=== PATIENT | male | born 2005 | race Caucasian/White ===

== ENCOUNTER 2025-07-26 08:38 | Outpatient (AMB) | payer OTHER, SELFPAY ==
--- NOTE | 2025-07-26 08:39 | MHC.PC.OV ---
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: No Accompanied by: Self / Same As Patient Allergies No Known Allergies Allergy (Verified 07/26/25 08:43) Medication List - Last Reconciled 07/26/25 by Harpreet Hoffman MD No Known Home Meds Tobacco use date assessed: 07/26/25 Dental Screening Dental Screen Date: 07/26/25 Did you have a dental visit in the last 12 months?: Yes Did you have a dental problem in the last 6 months where you did not have access to dental care?: No Was dental information given to patient?: Patient has dentist HPI HPI Comments History of Present Illness Details History of Present Illness The patient is a 19 year old male presenting for his first primary care visit as an adult. He was previously followed by a pediatric provider but has not seen a doctor in a while. He reports feeling well overall and denies any current medical conditions. Based on a PHQ assessment, he meets the criteria for mild to moderate depression. 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 He denies any thoughts of self-harm and has declined medication or psychiatric referral, stating he has a good support system. Past surgical history is significant for a tonsillectomy as a child. His family history is positive for diabetes in his mother. He denies any use of tobacco, marijuana, vapes, cocaine, heroin, or alcohol. Medical History: - Mild to moderate depression, per PHQ screen - Needle phobia Surgical History: - Tonsillectomy as a child Family History: - Diabetes: Mother - Denies family history of heart disease or cancers. Diagnostic Results: - PHQ Assessment for Depression: meets criteria for mild to moderate depression. Social History - Substance Use: Denies use of tobacco, marijuana, vapes, cocaine, heroin, or alcohol. 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 - Sexual History: Patient is not currently sexually active. [facility] Medical History (Updated 07/26/25 @ 09:03 by Harpreet Hoffman MD) Anxiety and depression Annual physical exam Social History Housing: House Patient Tobacco Use Status: Never used Tobacco e-Cigarette/Vaping Use: Former Use service: No Current occupational status: employed Current occupation: [employer] seasonal Cognitive needs: No Hearing needs: No Vision needs: No Questionnaire PHQ-9 Over the last 2 weeks, how often have you been bothered by any of the following problems? 1. Little interest or pleasure in doing things: several days 2. Feeling down, depressed, or hopeless: not at all 3. Trouble falling or staying asleep, or sleeping too much: more than half the days 4. Feeling tired or having little energy: more than half the days 5. Poor appetite or overeating: more than half the days 6. Feeling bad about yourself - or that you are a failure or have let yourself or your family down: not at all 7. Trouble concentrating on things, such as reading the newspaper or watching television: more than half the days 8. Moving or speaking so slowly that other people could have noticed. Or the opposite - being so fidgety or restless that you have been moving around a lot more than usual: not at all 9. Thoughts that you would be better off or of hurting yourself in some way: not at all Total score: 9 Depression Screening Interpretation: Positive Depression Screening Done: Yes Source: Developed by Drs. Blas Warner, Shea Banks, Ronald Pierre and colleagues, with an educational hilary from [employer]. Thrive Questionnaire Date Thrive assessed: 07/26/25 I am a: Patient What is your living situation today?: I have a steady place to live Within the past 12 months, did the food you bought not last and you didn't have the money to get more?: Never true Within the past 12 months, did you worry whether your food would run out before you got money to buy more?: Never true Do you have trouble paying for medicines?: No Do you have trouble getting transportation to medical appointments?: No Do you have trouble paying your heating and electricity bill?: No Do you have trouble taking care of your child, family member or friend?: No Do you have trouble with day-to-day activities such as bathing, preparing meals, shopping, managing finances, etc.?: No Are you currently unemployed and looking for a job?: No Are you interested in more education?: No THRIVE Score: 0 AUDIT C Alcohol Use Questionnaire (AUDIT-C) 1. How often do you have a drink containing alcohol?: Never 3. How often do you have six or more drinks on one occasion?: Never Total Score: 0 Score Reviewed/Action Taken: Yes ALICE-7 AMB Questionnaire ALICE-7 Date ALICE - 7 assessed: 07/26/25 Feeling nervous, anxious, or on edge: 1 = Several days Not being able to stop or control worryin = Several days Worrying too much about different things: 1 = Several days Trouble relaxin = Several days Being so restless that it is hard to sit still: 0 = Not at all Becoming easily annoyed or irritable: 1 = Several days Feeling afraid as if something awful might happen: 0 = Not at all Total ALICE-7 score (0-4 normal; 5-9 mild; 10-14 moderate; 15-21 severe): 5 Source: Developed by Drs. Blas Warner, Shea Banks, Ronald Pierre and colleagues, with an educational hilary from [employer]. ALICE-7 Assessment Billing ALICE-7 Assessment Tool: ALICE-7 Assessment 45463 Review of Systems Narrative Review of Systems - General: Reports feeling well overall. - Psychiatric: Reports feeling stressed, being an up and down person, and having a lack of motivation. Denies thoughts of self-harm. - Genitourinary: Denies any difficulty with urination. - Gastrointestinal: Denies any difficulty with defecation. All systems reviewed & are unremarkable except as reviewed in HPI and above Physical exam (Primary Care) Vital Signs: Last Vital Signs Temp 98.7 F 07/26/25 08:45 Pulse 71 07/26/25 08:45 Resp 18 07/26/25 08:45 BP 132/76 07/26/25 08:45 Pulse Ox 98 07/26/25 08:45 Oxygen Delivery Method Room Air 07/26/25 08:45 BMI result Body Mass Index 23.5 Tobacco/Smoking Status: Tobacco use Status Tobacco use date assessed 07/26/25 07/26/25 08:41 Patient Tobacco Use Status Never used Tobacco 07/26/25 08:47 e-Cigarette/Vaping Use Former Use 07/26/25 08:47 PHQ-9: PHQ-9 Score PHQ-9: Total score 9 07/26/25 08:56 Depression Screening Interpretation: Positive Thrive Assessment: Date of Thrive Assessment Date Thrive assessed 07/26/25 07/26/25 08:41 Narrative Physical Exam General: +Alert and oriented, Well nourished, No acute distress. Eye: Pupils are equal, round and reactive to light, Intact accommodation, Extraocular movements are intact, Normal conjunctiva, Vision unchanged. HENT: Normocephalic, Atraumatic, Tympanic membranes are clear, Normal hearing, Oral mucosa is moist, No pharyngeal erythema, Ear canals patent. Respiratory: Lungs CTA bilaterally, No wheeze, Respirations are non-labored. Cardiovascular: Regular rate, Regular rhythm, S1 auscultated, S2 auscultated, No murmur, Good pulses equal in all extremities, Normal peripheral perfusion, No edema. Gastrointestinal: Soft, Non-tender, Non-distended, Normal bowel sounds, No organomegaly. Musculoskeletal: Normal range of motion, Normal strength, No tenderness, No swelling, No deformity, Normal gait. Integumentary: Warm, Dry, [place], Intact. Neurologic: Alert, Oriented, Normal sensory, Normal motor function, No focal defects, Cranial Nerves II-XII are grossly intact, Normal deep tendon reflexes. Psychiatric: Cooperative, Appropriate mood & affect, Normal judgment, Mild to moderate depression. Coding Level of Care Code New Pt Prev Care 18-39yr(03132 Diagnoses Anxiety and depression F41.9; F32.A Annual physical exam Z00.00 Additional Codes ALICE-7 Assessment Billing - ALICE-7 Assessment Tool: ALICE-7 Assessment 12031 ([id number]) Assessment & Plan Assessment & Plan (1) Anxiety and depression: Comment: - The patient screens positive for mild to moderate depression and acknowledges having up and down moods with a lack of motivation. - He denies suicidal ideation. - He has declined medication or a psychiatric referral, citing a strong support system. - Plan is to encourage him to remain active, especially during his work's off-season, to help manage his mood. Code(s): F41.9 - Anxiety disorder, unspecified; F32.A - Depression, unspecified Category: Medical (2) Annual physical exam: Comment: - This is the patient's first adult wellness visit. - Plan includes ordering baseline blood work to screen for HIV, syphilis, diabetes, and infections, as well as to check blood counts. - He will follow up in one year for his next annual physical or sooner if needed. Code(s): Z00.00 - Encounter for general adult medical examination without abnormal findings Category: Medical Plan: Health Maintenance - Annual physical examination established. - Baseline blood work ordered for screening, to include testing for HIV, syphilis, diabetes, infections, and a blood count. - Counseled on the importance of staying physically active to manage mood and for overall well-being. Patient was informed and verbally consented to the use of an ambient scribe for clinic note documentation during this visit. Vital signs reviewed. Comprehensive history, review of systems, and physical exam completed. Medications, allergies, and problem list reviewed and updated. Counseling provided on nutrition, regular exercise, sleep hygiene, and moderation of alcohol use. Discussed age-appropriate screenings (mammogram, colonoscopy, Pap, bone density) and immunizations (flu, COVID, shingles, Tdap). Screened for depression, fall risk, and home safety; no current concerns. Discussed stress management, dental and vision care, and importance of ongoing preventive follow-up. Routine labs ordered for metabolic and lipid screening. Patient educated on healthy lifestyle and agrees with the plan. Plan I discussed the patient's screening results, which indicated mild to moderate depression, and he acknowledged his fluctuating moods and lack of motivation. He declined medication and a psychiatry referral, and I advised him to maintain physical activity to help manage his mood. We also discussed the plan for baseline screening labs, including tests for HIV, syphilis, and diabetes. I acknowledged his significant fear of needles and provided reassurance about the process, explaining a small butterfly needle would be used for a quick blood draw. I recommended he return in one year for his next annual physical or sooner if any new issues arise. Orders: Orders Comprehensive Met. Panel Today Z00.00 - Encounter for general adult medical examination without abnormal findings Hemoglobin A1c Today Z00.00 - Encounter for general adult medical examination without abnormal findings Lipid Panel Today Z00.00 - Encounter for general adult medical examination without abnormal findings Syphilis Screen Today Z00.00 - Encounter for general adult medical examination without abnormal findings Complete Blood Count Auto Diff Today Z00.00 - Encounter for general adult medical examination without abnormal findings Hepatitis A,B,C Profile Today Z00.00 - Encounter for general adult medical examination without abnormal findings HIV Ab/Ag Today Z00.00 - Encounter for general adult medical examination without abnormal findings Microalbumin, Random (w Creat) Today Z00.00 - Encounter for general adult medical examination without abnormal findings TSH reflex Free T4 Today Z00.00 - Encounter for general adult medical examination without abnormal findings Vitamin D 25-OH Total Today Z00.00 - Encounter for general adult medical examination without abnormal findings Patient Instructions: - Go to the lab station across the champion from the clinic to have your blood drawn today. - Focus on staying active and keeping busy. - We will see you back in one year for your next annual physical exam. - If anything comes up or you need anything before then, we are available.
[2025-07-26 08:45] VITALS: BP 132/76; PULSE 71; RESP 18; TEMP 37.1; O2SAT 98; BMI 23.5
== END 2025-07-26 09:03 | disposition home or self-care (01) ==
PROVIDERS: PCP Internal Medicine; Visit Provider Student in an Organized Health Care Education/Training Program
DX: Z00.00 Encounter for general adult medical examination without abnormal findings (principal); F41.9 Anxiety disorder, unspecified; F32.A Depression, unspecified

== ENCOUNTER 2025-07-26 09:10 | Outpatient (REF) | payer OTHER, SELFPAY ==
--- OUTSIDE RECORDS SUMMARY | 2025-07-26 09:48 | XMS_ITS | Encounter Summary ---
Author Organization [facility] Address [address] [place] [phone] Phone Care Team Providers Care Billing Administrator Name Role Phone Felix Bender MD Primary Care Provider Missy greenberg Encounter Details Date Type Department Care Team (Late st Contact Info) Description 09/15/2016 Documentation EM Family Medicine [address] [place], [place] [phone] Family Medicine, Physician [address] [place] [address] Social History Tobacco Use Types Packs/Day Years Used Date Smoking Tobacco: Never Comments:Never smoker Sex and Gender Information Value Date Recorded Sex Assigned at Male 03/04/2020 11:29 AM EDT Legal Sex Male 5:14 PM EDT Gender Identity Male 03/04/2020 11:29 AM EDT Sexual Orientation Straight 03/04/2020 11 :29 AM EDT documented as of this encounter Plan of Treatment Not on file documented as of this encounter Visit Diagnoses Not on filedocumented in this encounter Care Teams Billing Administrator Relationship Specialty Start Date End Date Felix Bender MD PCP - General 04/01/17 09/11/23 documented as of this encounter
--- OUTSIDE RECORDS SUMMARY | 2025-07-26 09:48 | XMS_ITS | Clinical Summary ---
Author Organization [facility] Address [address] [place] [address] Care Team Providers Care Pyrotechnic Mixer Name Role Phone Unavailable Primary Care Provider Unavailabl e Social History Tobacco Use Types Packs/Day Years Used Date Smoking Tobacco: Never Assessed Sex and Gender Information Value Date Recorded Sex Assigned at Not on file Legal Sex Male 10:58 AM EST Gender Identity Not on file Sexual Orientation Not on file Plan of Treatment Health Maintenance Due Date Last Done Comments Varicella Vaccines (1 of 2 - 13+ 2-dose series) 2018 HPV Vaccines (1 - Male 3-dos e series) 2020 Meningococcal B Vaccine (1 o f 2 - Standard) 2021 Depression Screening 08/22/2024 DTaP,Tdap,and Td Vaccines (1 - Tdap) 2024 Hepatitis B Vaccines (1 of 3 - 19+ 3-dose series) 2024 COVID-19 Vaccine (1 - 2024-2 6 season) 2025 Influenza Vaccine (#1) 2025 RSV Immunization Adult Patie nts (1 - 1-dose 75+ series) 2080 HIB Vaccines Aged Out No longer eligi ble based on patient's age to complete this topic Hepatitis A Vaccines Aged Out No long er eligible based on patient's age to complete this topic IPV Vaccines Aged Out No longer eligi ble based on patient's age to complete this topic MMR Vaccines Aged Out No longer eligi ble based on patient's age to complete this topic Meningococcal ACWY Vaccine Aged Out N o longer eligible based on patient's age to complete this topic Pneumococcal Vaccine: Pediat rics (0 to 5 Years) and At-Risk Patients (6 to 49 Years) Aged Out No longer eligible b ased on patient's age to complete this topic RSV Immunization Patients Un uday 20 months Aged Out No longer eligible b ased on patient's age to complete this topic
--- OUTSIDE RECORDS SUMMARY | 2025-07-26 09:48 | XMS_ITS | Encounter Summary ---
Author Organization [facility] Address [address] [place] [phone] Phone Care Team Providers Care Shingle Trimmer Name Role Phone Felix Bender MD Primary Care Provider Missy greenberg Encounter Details Date Type Department Care Team (Late st Contact Info) Description 04/07/2017 Conversion Encounter [facility] - [address] [phone] Social History Tobacco Use Types Packs/Day Years [...] on filedocumented in this encounter Care Teams Shingle Trimmer Relationship Specialty Start Date End Date Felix Bender MD PCP - General 04/01/17 09/11/23 documented as of this encounter
--- OUTSIDE RECORDS SUMMARY | 2025-07-26 09:48 | XMS_ITS | Clinical Summary ---
Author Organization [facility] Address [address] [place], [place] [address] [address] Phone Care Team Providers Care Clerk Of Scales Name Role Phone Unavailable Primary Care Provider Unavailabl e Allergies Active Allergy Reactions Criticality Noted Date Comments Environmental 12/15/2017 Dust mites, cat dander, dog dander, bird dander, molds, grass, pollen Medications loratadine 10 MG tablet Take 10 mg by mouth as needed for allergies. Active Active Problems Problem Noted Date Diagnosed Date Acne vulgaris 12/01/2021 Overview (12/01/2021): Allen bolaños Assessment & Plan (12/01/2021 2:31 PM EDT): Local care Influenza vaccination declined 05/30/2019 Overview (06/30/2021): Declined 06/30/21. 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 Doing great now. Nail biting 12/19/2018 03/04/2020 Overview (12/19/2018): Is an empty habit , can set up a consult to stop Anxiety 09/03/2017 11/28/2020 Overview (09/03/2017): In weekly therapy. Assessment & Plan (03/04/2020 11:36 AM EDT): Doing well, is in therapy Assessment & Plan (12/19/2018 1:59 PM EDT): Doing better, in therapy, adamaris sparks is athletic. Seasonal allergic rhinitis due to pollen 12/18/2010 11/28/2020 Assessment & Plan (11/28/2020 3:09 PM EDT): No allergies now. Assessment & Plan (03/04/2020 11:25 AM EDT): Has been better this year. Immunizations Immunization Administration Dates Next Due DTaP / Hep B / IPV 03/29/2006,02/02/2006, 006 DTaP 5 12/15/2009,12/30/2006 H1N1 08/18/2009,06/24/2009 HPV Vaccine 9 Valent 12/19/2018,12/15/2017 Hep A, ped/adol 11/20/2007,11/03/2006 Hep B, ped/adol 2005 Hib (HbOC) 12/30/2006 Hib (PRP-T) 03/29/2006,02/02/2006,2005 IPV 12/15/2009 Influenza, injectable, quadr ivalent, preservative free 08/05/2020 Influenza, injectable, trivalent 08/18/2009,12/20,06/20/2006 Influenza, intranasal, quadrivalent 06/23/2015 MMR 12/15/2009 MMRV 11/03/2006 Meningococcal Conj (Menactra) MCV4P 12/01/2021,0 12/15/2017 Pneumococcal Conjugate 12/30/2006,2005,02/02/2006,12/03 Tdap 12/15/2017 Varicella 12/15/2009 Family History Medical History Relation Name Comments Mental illness Father Bereket Mendoza Cirrhosis Maternal Grandfather Arthritis Maternal Grandmother Anxiety disorder Mother Danita Jay Diabetes Mother Danita Jay Migraines Mother Danita Jay Hyperlipidemia Other Mental illness Paternal Grandmother Anxiety disorder Sister Kanika Mendoza Asthma Sister Kanika Mendoza Depression Sister Kanika Mendoza Hyperlipidemia Sister Kanika Mendoza Migraines Sister Kanika Mendoza Obesity Sister Kanika Mendoza Relation Name Status Comments Father Bereket Mendoza Alive mental illnes s Half-Brother Alive Half brother (P ): Alive and well Maternal Grandfather Maternal Grandmother Alive Mother Danita Jay Alive Works at [employer] Other Family history of Sudden /CT under age 55, Family history of Migraines, No family history of Obesity, No family history of ADD/ADHD, No family history of Developmental dislocation of hip, No family history of Strabismus/amblyopia, No family history of Diabetes mellitus, No family history of Autism, No family history of Deafness, No family history of Elevated cholesterol, No family history of Seizure disorder, No family history of Sickle cell disease Paternal Grandfather heart i ssues Paternal Grandmother Alive mental illness Sister Kanika Mendoza Alive Sister: Asthma Social History Tobacco Use Types Packs/Day Years Used Date Smoking Tobacco: Never Smokeless Tobacco: Never Comments:Never smoker Alcohol Use Standard Drinks/Week Comments Never 0 (1 standard drink = 0.6 oz pur e alcohol) Hunger/Food Answer Date Recorded In the last 12 months, did y ou or your family ever eat less than you felt you should because there wasn't enough money for food? No 12/01/2021 Stable Housing Answer Date Recorded Are you worried that in the next 2 months you may not have stable housing? No 12/01/2021 Transportation Concerns Answer Date Rec orded In the last 12 months, have you or your family ever had to go without healthcare because you didn't have a way to get there? No 12/01/2021 Hazards in Home Answer Date Recorded Think about the place you li ve. Do you have problems with any of the following? Pests (mice or roaches), mold, no/not working smoke detectors, water leaks, no window guards. No 2021 Financing Utilities Answer Date Recorde d In the last 12 months, has t he [employer], gas, oil, or water [employer] threatened to shut off your services in your home? No 12/01/2021 Safety at Home Answer Date Recorded Are you or your family worried about feeling saf e in your home? No 12/01/2021 Outside Support Answer Date Recorded Do you feel that you need mo re support from other people or programs to help you care for yourself or your family? No 12/01/2021 Understanding Health Concerns Answer Da te Recorded Do you need help understandi ng your or your child's healthcare needs (diagnosis, medications, plan, etc.)? No 12/01/2021 Financing Health Concerns Answer Date R ecorded In the last 12 months, was t here a time when your child needed to see a doctor or get medications or supplies but could not because of cost? No 12/01/2021 Missing School or Work Answer Date Mic rded Did you or your child miss s chool or work because of a health problem that could have been avoided? No 12/01/2021 Sex and Gender Information Value Date Recorded Sex Assigned at Male 03/04/2020 11:29 AM EDT Legal Sex Male 5:14 PM EDT Gender Identity Male 03/04/2020 11:29 AM EDT Sexual Orientation Straight 03/04/2020 11 :29 AM EDT Last Filed Vital Signs Vital Sign Reading Time Taken Comments Blood Pressure 112/57 01/10/2023 9:15 AM EDT Pulse 60 01/10/2023 9:15 AM EDT Temperature 36.2 C (97.2 F) 01/10/2023 9:15 AM EDT Respiratory Rate - - Oxygen Saturation - - Inhaled Oxygen Concentration - - Weight 69.2 kg (152 lb 9.6 oz) 01/10/2023 9:15 A M EDT Height 181.6 cm (5' 11.5 ) 01/10/2023 9:15 AM ED T Body Mass Index 20.99 01/10/2023 9:15 AM EDT Body Mass Index Percentile 43.88% 01/10/2023 9:1 5 AM EDT Growth Chart: CDC (Boys, 2-2 0 Years) Plan of Treatment Health Maintenance Due Date Last Done Comments Men B Vaccine (1 of 2 - Standard) 2021 Influenza Vaccines (#1) 2025 08/05/20 20, 06/23/2015, 08/18/2009, Additional history exists COVID-19 Vaccine (3 - 2024-2 6 season) 2025 05/17/2021, 04/19/2021 DTaP,Tdap,and Td Vaccines (7 - Td or Tdap) 12/16/2027 12/15/2017, 12/15/2009, 12/30/2006, Additional history exists Hepatitis B Vaccines Completed 03/29/2006, 02/02/2006, 2005, Additional history exists HIB Vaccines Completed 12/30/2006, 0 03/2006, 02/02/2006, Additional history exists Pneumococcal Vaccine Completed 12/30/2006, 03/29/2006, 02/02/2006, Additional history exists Hepatitis A Vaccines Completed 11/20/2007, 11/04/19 07 IPV Vaccines Completed 12/15/2009, 0 03/2006, 02/02/2006, Additional history exists MMR Vaccines Completed 12/15/2009, 11/03/2006 Varicella Vaccines Completed 12/15/2009, 11/03/2006 HPV Vaccines Completed 12/19/2018, 12/15/2017 Meningococcal Vaccine Completed 12/01/2021, 018
--- OUTSIDE RECORDS SUMMARY | 2025-07-26 09:48 | XMS_ITS | Encounter Summary ---
Author Organization [facility] Address [address] [place] [address] Phone Care Team Providers Care Digital Advisor Name Role Phone Felix Bender MD Primary Care Provider Missy greenberg Encounter Details Date Type Department Care Team (Late st Contact Info) Description 02/15/2017 Documentation [facility] [address] [place], [place] [phone] Family Medicine, Physician [address] [place] [address] Social History Tobacco Use Types Packs/Day Years [...] on filedocumented in this encounter Care Teams Digital Advisor Relationship Specialty Start Date End Date Felix Bender MD PCP - General 04/01/17 09/11/23 documented as of this encounter
--- OUTSIDE RECORDS SUMMARY | 2025-07-26 09:48 | XMS_ITS | Encounter Summary ---
Author Organization [facility] Address [address] [place] [address] Phone Care Team Providers Care Terra Cotta Roofer Name Role Phone Felix Bender MD Primary Care Provider Missy greenberg Encounter Details Date Type Department Care Team (Late st Contact Info) Description 11/28/2009 Documentation [facility] [address] [place], [place] [phone] Family Medicine, Physician [address] [place] [address] Social History Tobacco Use Types Packs/Day Years [...] on filedocumented in this encounter Care Teams Terra Cotta Roofer Relationship Specialty Start Date End Date Felix Bender MD PCP - General 04/01/17 09/11/23 documented as of this encounter
--- OUTSIDE RECORDS SUMMARY | 2025-07-26 09:48 | XMS_ITS | Clinical Summary ---
Author Organization [facility] Address [address] [place] [address] Care Team Providers Care Senior Mechanical Technician Name Role Phone Ansley Fay MD Primary Care Provider [phone] Allergies No known active allergies Medications loratadine (CLARITIN) 10 MG tablet Take 10 mg by mouth. Active Social History Tobacco Use Types Packs/Day Years Used Date Smoking Tobacco: Never Smokeless Tobacco: Never Alcohol Use Standard Drinks/Week Comments Not Currently 0 (1 standard drink = 0.6 oz pur e alcohol) Sex and Gender Information Value Date Recorded Sex Assigned at Not on file Legal Sex Male 12:18 AM EST Gender Identity Not on file Sexual Orientation Not on file Last Filed Vital Signs Vital Sign Reading Time Taken Comments Blood Pressure 110/65 10/10/2021 2:52 AM EST Pulse 65 10/10/2021 2:52 AM EST Temperature 36.4 C (97.6 F) 10/10/2021 2:52 AM EST Respiratory Rate 18 10/10/2021 2:52 AM EST Oxygen Saturation 99% 10/10/2021 2:52 AM EST Inhaled Oxygen Concentration - - Weight 72.6 kg (160 lb) 10/10/2021 12:27 AM EST Height 177.8 cm (5' 10 ) 10/10/2021 12:27 AM EST Body Mass Index 22.96 10/10/2021 12:27 AM EST Body Mass Index Percentile 76.91% 10/10/2021 12: 27 AM EST Growth Chart: CDC (Boys, 2-2 0 Years) Plan of Treatment Health Maintenance Due Date Last Done Comments Hepatitis C Virus Screening 2005 HIV Screening 2018 HPV Vaccines (1 - Male 3-dose series) 2020 DTaP/Tdap/Td Vaccines (1 - Tdap) 2024 Hepatitis B Vaccines (1 of 3 - 19+ 3-dose series) 2024 Influenza Vaccine 03/22/2025 08/05/2020, , 12/30/2006, Additional history exists COVID-19 Vaccine ( - 2023- season) 2025 Influenza Vaccine Discontinued 08/05/2020, , 12/30/2006, Additional history exists Pneumococcal Vaccine: Pediatric (0-5 Years) and At-Risk Patients (6 to 49 Years) Aged Out No longer eligible based on patient's age to complete this topic Insurance MEDICAID OUT OF [place] [facility] [place] Care Teams Senior Mechanical Technician Relationship Specialty Start Date End Date Ansley Fay MD [address] [facility] [address] [place] [id number] PCP - General Pediatric, General 10/10/21
--- OUTSIDE RECORDS SUMMARY | 2025-07-26 09:48 | XMS_ITS | Encounter Summary ---
Author Organization [facility] Address [address] [place] [phone] Phone Care Team Providers Care Coatings Inspector Name Role Phone Felix Bender MD Primary Care Provider Missy greenberg Encounter Details Date Type Department Care Team (Late st Contact Info) Description 07/23/2010 Documentation [facility] [address] [place], [place] [phone] Family Medicine, Physician [address] [place] [address] Social History Tobacco Use Types Packs/Day Years [...] on filedocumented in this encounter Care Teams Coatings Inspector Relationship Specialty Start Date End Date Felix Bender MD PCP - General 04/01/17 09/11/23 documented as of this encounter
--- OUTSIDE RECORDS SUMMARY | 2025-07-26 09:48 | XMS_ITS | Encounter Summary ---
Author Organization [facility] Address [address] [place] [phone] Phone Care Team Providers Care Shingle Shearing Machine Operator Name Role Phone Felix Bender MD Primary Care Provider Missy greenberg Encounter Details Date Type Department Care Team (Late st Contact Info) Description 02/15/2017 Documentation [facility] [address] [place], [place] [phone] Family Medicine, Physician [address] [place] [address] Social History Tobacco Use Types Packs/Day Years [...] filedocumented in this encounter Care Teams Shingle Shearing Machine Operator Relationship Specialty Start Date End Date Felix Bender MD PCP - General 04/01/17 09/11/23 documented as of this encounter
--- OUTSIDE RECORDS SUMMARY | 2025-07-26 09:48 | XMS_ITS | Encounter Summary ---
Author Organization [facility] Address [address] [place] [address] Phone Care Team Providers Care English Professor Name Role Phone Felix Bender MD Primary Care Provider Missy greenberg Encounter Details Date Type Department Care Team (Late st Contact Info) Description 09/21/2016 Documentation [facility] [address] [place], [place] [phone] Family Medicine, Physician [address] [place] [address] Social History Tobacco Use Types Packs/Day Years [...] on filedocumented in this encounter Care Teams English Professor Relationship Specialty Start Date End Date Felix Bender MD PCP - General 04/01/17 09/11/23 documented as of this encounter
--- OUTSIDE RECORDS SUMMARY | 2025-07-26 09:48 | XMS_ITS | Encounter Summary ---
Author Organization [facility] Address [address] [place] [address] Phone Care Team Providers Care Ehr Trainer Name Role Phone Felix Bender MD Primary Care Provider Missy greenberg Encounter Details Date Type Department Care Team (Late st Contact Info) Description 09/14/2010 Documentation [facility] [address] [place], [place] [phone] Family Medicine, Physician [address] [place] [address] Social History Tobacco Use Types Packs/Day Years [...] on filedocumented in this encounter Care Teams Ehr Trainer Relationship Specialty Start Date End Date Felix Bender MD PCP - General 04/01/17 09/11/23 documented as of this encounter
--- OUTSIDE RECORDS SUMMARY | 2025-07-26 09:48 | XMS_ITS | Encounter Summary ---
Author Organization [facility] Address [address] [place] [address] Phone Care Team Providers Care President Ceo & Founder Name Role Phone Felix Bender MD Primary Care Provider Missy greenberg Encounter Details Date Type Department Care Team (Late st Contact Info) Description 03/29/2017 Documentation [facility] [address] [place], [place] [phone] Family Medicine, Physician [address] [place] [address] Social History Tobacco Use Types Packs/Day Years [...] on filedocumented in this encounter Care Teams President Ceo & Founder Relationship Specialty Start Date End Date Felix Bender MD PCP - General 04/01/17 09/11/23 documented as of this encounter
--- OUTSIDE RECORDS SUMMARY | 2025-07-26 09:48 | XMS_ITS ---
Author Name [facility] Encounters Encounter Type Encounter Reason Primary Diagnosis Location Date Emergency Syncope and collapse [facility] [place] 10/10/2021 Care Team Organization Name Specialty Phone Email Start Date End [facility] 10/10[facility]2021 04/09/2024 [facility] Primary [facility] 10/10/202110/10
[2025-07-26 10:17] LABS: MANUAL DIFF FLAG NO
[2025-07-26 10:40] LABS: Alanine Aminotransferase 40 U/L (0-40); Albumin Level 5.0 g/dL (3.5-5.0); Alkaline Phosphatase 82 U/L (39-117); Anion Gap 13 (12-20); Aspartate Amino Transferase 25 U/L (5-37); Blood Urea Nitrogen 27 mg/dL (9-16); Calcium 9.5 mg/dL (8.4-10.2); Carbon Dioxide 25 mmol/L (22-29); Chloride 108 mmol/L (96-108); Cholesterol 214 mg/dL (<200); Estimated Glomerular Filt Rate > 60; HDL Cholesterol 51 mg/dL (>40); Hematocrit 47.3 % (42.0-52.0); Hemoglobin 15.5 g/dl (14.0-18.0); Imm Gran Abs Auto 0.01 X10*3/uL (0.00-0.03); Imm Gran Pct Auto 0.1 % (0.0-0.4); Lymphocytes Absolute Auto 3.7 X10*3/uL (1.2-4.9); Mean Corpuscular HGB Conc 32.8 g/dl (31.0-36.0); Mean Corpuscular Hemoglobin 29.6 pg (27.0-33.0); Mean Corpuscular Volume 90.4 fL (80.0-98.0); NRBC Abs Auto 0.000 X10*3/uL (0.0-0.012); NRBC Pct Auto 0.0 /100WBC (0.0-0.2); Platelet Count 215 X10*3/uL (160-400); Potassium 4.0 mmol/L (3.3-5.1); Red Blood Count 5.23 X10*6/uL (4.60-5.80); Sodium 142 mmol/L (135-145); Total Protein 7.5 g/dL (6.5-8.0); Triglycerides 91 mg/dL (<150); White Blood Count 7.5 X10*3/uL (4.8-10.8)
[2025-07-26 11:09] LABS: Syphilis Screen Nonreactive (Nonreactive)
[2025-07-26 11:27] LABS: HBS Num1 3.33 mIU/mL (0-7.99); HBc Num1 0.05 S/CO (0.00-0.79); HBsAGNum1 0.30 S/CO (0.00-0.99); Hepatitis A Antibody IgM 0.19 Index (0-0.79); Hepatitis B Surface Antigen Negative (Negative); ~HepC Num1 0.08 S/CO (0.00-0.79); ~Hepatitis A Antibody IgM Nonreactive (Nonreactive); ~Hepatitis B Surface Antibody NONREACTIVE (Nonreactive); ~Hepatitis C Antibody Nonreactive (Nonreactive)
[2025-07-26 11:58] LABS: HIV Num 1 0.08 S/CO (0.00-0.99)
== END 2025-07-26 09:11 | disposition home or self-care (01) ==
LOC: HO.10HDL 09:10
PROVIDERS: Visit Provider Student in an Organized Health Care Education/Training Program
DX: Z00.00 Encounter for general adult medical examination without abnormal findings (principal); Z11.4 Encounter for screening for human immunodeficiency virus [HIV]; Z11.59 Encounter for screening for other viral diseases; Z11.3 Encounter for screening for infections with a predominantly sexual mode of transmission
CPT/HCPCS: 36415; 80053; 80061; 82043; 82306; 82570; 83036; 84443; 85025; 86704; 86706; 86709; 86780; 86803; 87340; 87389